=== PATIENT | male | born 1950 | race African-American/Black ===

== ENCOUNTER 2017-02-22 15:11 | Inpatient (IN) | payer MEDICAID ==
[~2017-02-22] VITALS: Ht 180.3 cm; Wt 80.4 kg
[2017-02-22] MEDS: SODIUM CHLORIDE 0.9% 1,000 ML IV SCH (01:30)
[~2017-02-22 15:11] MED LIST: CHOL100011 PO; CODE15TA PO; LEVO125T PO; LISI-167 PO
[2017-02-22] MEDS ORDERED: SODIUM CHLORIDE 0.9% 1,000 ML IV ONE (15:28)
[2017-02-22] MEDS ORDERED: ONDANSETRON 2MG/ML, 2ML IVPush ONE (15:30)
[2017-02-22] MEDS ORDERED: FAMOTIDINE 20 MG/2 ML IVP ONE (15:30)
[2017-02-22] MEDS ORDERED: SODIUM CHLORIDE 0.9% 1,000ML IVBOLUS ONE (15:30)
[2017-02-22] MEDS ORDERED: ONDANSETRON 2MG/ML, 2ML ONE (15:53)
[2017-02-22] MEDS ORDERED: FAMOTIDINE 20 MG/2 ML ONE (15:53)
[2017-02-22 16:14] LABS: ASPARTATE AMINO TRANSFERASE 21 U/L (15-37); BLOOD UREA NITROGEN 26 mg/dL (7-18)
[2017-02-22] MEDS ORDERED: MAALOX/HYOSCYAMINE/LIDOCAINE 45 ML BOTTLE PO ONE (18:00)
[2017-02-22] MEDS ORDERED: MAALOX/HYOSCYAMINE/LIDOCAINE 45 ML BOTTLE ONE (18:09)
[2017-02-22 18:21] LABS: IS PT STATUS REG ER OR PRE ER? YES
[2017-02-22] MEDS ORDERED: ASPIRIN 325 MG TABLET PO ONE (18:42)
[2017-02-22] MEDS ORDERED: ASPIRIN 325 MG TABLET ONE (19:56)
[2017-02-22] MEDS ORDERED: hydrALAzine 20 MG/ML, 1ML IVPush PRN (21:00)
[2017-02-22] MEDS ORDERED: HEPARIN 5,000 UNITS/ML, 1ML IV PRN (21:00)
[2017-02-22] MEDS ORDERED: DOCUSATE 100 MG CAPSULE PO PRN (21:00)
[2017-02-22] MEDS ORDERED: HEPARIN 25,000 UNITS/500ML PMX 500 ML IV PRN (21:00)
[2017-02-22] MEDS ORDERED: BISACODYL 10 MG SUPP PR PRN (21:00)
[2017-02-22] MEDS ORDERED: ACETAMINOPHEN 325 MG TABLET PO PRN (21:00)
[2017-02-22] MEDS ORDERED: HEPARIN 5,000 UNITS/ML, 1ML IV ONE (21:00)
[2017-02-22] MEDS ORDERED: TRAZODONE 50MG TABLET PO PRN (21:00)
[2017-02-22] MEDS ORDERED: POLYETHYLENE GLYCOL 17 GM PACKET PO PRN (21:00)
[2017-02-22] MEDS: ATORVASTATIN 80 MG TABLET PO SCH (21:47)
[2017-02-22 21:50] VITALS: BP 158/97
[2017-02-22] MEDS: ONDANSETRON 2MG/ML, 2ML IVPush PRN (22:07)
[2017-02-22 23:06] LABS: IS PT STATUS REG ER OR PRE ER? NO
[2017-02-23 02:15] VITALS: BP 152/96
[2017-02-23] MEDS: PROCHLORPERAZINE 5 MG/ML, 2ML IV PRN ×3 (04:45→21:26)
[2017-02-23 05:42] LABS: ASPARTATE AMINO TRANSFERASE 20 U/L (15-37); BLOOD UREA NITROGEN 19 mg/dL (7-18)
[2017-02-23 05:46] LABS: IS PT STATUS REG ER OR PRE ER? NO
[2017-02-23 07:40] VITALS: BP 156/93
[2017-02-23] MEDS: THIAMINE 100MG TABLET PO SCH (08:24)
[2017-02-23] MEDS: FOLIC ACID 1 MG TABLET PO SCH (08:24)
[2017-02-23] MEDS: LISINOPRIL 10 MG TABLET PO SCH (08:24)
[2017-02-23] MEDS: LEVOTHYROXINE 125 MCG TABLET PO SCH (08:24)
[2017-02-23] MEDS: ONDANSETRON 2MG/ML, 2ML IVPush PRN ×2 (08:24→16:57)
[2017-02-23] MEDS: ASPIRIN 81 MG TABLET CHEW PO SCH (08:25)
[2017-02-23] MEDS ORDERED: SODIUM CHLORIDE 0.9% 1,000 ML IV SCH (10:08)
[2017-02-23] MEDS: CARVEDILOL 6.25 MG TABLET PO SCH ×2 (11:26→17:02)
[2017-02-23] MEDS: SODIUM CHLORIDE 0.9% 1,000 ML IV SCH ×2 (11:51→21:27)
[2017-02-23 13:49] VITALS: BP 146/91
[2017-02-23] MEDS ORDERED: MIDAZOLAM 1 MG/ML, 5ML ONE (14:42)
[2017-02-23] MEDS ORDERED: HEPARIN 1,000 UNITS/ML, 10ML ONE (14:43)
[2017-02-23] MEDS ORDERED: BIVALIRUDIN 250 MG ONE (14:43)
[2017-02-23] MEDS ORDERED: LIDOCAINE 2%, 20ML ONE (14:43)
[2017-02-23] MEDS ORDERED: FENTANYL PF 100 MCG/2ML ONE (14:43)
[2017-02-23] MEDS ORDERED: VERAPAMIL 2.5 MG/ML, 2ML ONE (14:43)
[2017-02-23] MEDS ORDERED: TICAGRELOR 90 MG TABLET ONE (14:43)
[2017-02-23] MEDS ORDERED: CLOPIDOGREL 300 MG TABLET PO ONE (16:00)
[2017-02-23] MEDS ORDERED: LORazepam 2 MG/ML, 1ML IVPush ONE (18:00)
[2017-02-23 20:31] VITALS: BP 156/83
[2017-02-23] MEDS: ATORVASTATIN 80 MG TABLET PO SCH (21:27)
[2017-02-24 02:25] VITALS: BP 126/63
[2017-02-24] MEDS: SODIUM CHLORIDE 0.9% 1,000 ML IV SCH (05:04)
[2017-02-24 05:20] LABS: BLOOD UREA NITROGEN 13 mg/dL (7-18)
[2017-02-24] MEDS: CARVEDILOL 6.25 MG TABLET PO SCH (06:18)
[2017-02-24 08:09] VITALS: BP 129/82
[2017-02-24] MEDS: THIAMINE 100MG TABLET PO SCH (08:10)
[2017-02-24] MEDS: ASPIRIN 81 MG TABLET CHEW PO SCH (08:10)
[2017-02-24] MEDS: FOLIC ACID 1 MG TABLET PO SCH (08:10)
[2017-02-24] MEDS: LISINOPRIL 10 MG TABLET PO SCH (08:10)
[2017-02-24] MEDS: LEVOTHYROXINE 125 MCG TABLET PO SCH (08:10)
[2017-02-24] MEDS ORDERED: CLOPIDOGREL 75 MG TABLET PO SCH (09:00)
[2017-02-24] MEDS ORDERED: ATOR80TA75 PO (09:36)
[2017-02-24] MEDS ORDERED: CLOP75TA PO (09:36)
[2017-02-24] MEDS ORDERED: CARV6.2512 PO (09:36)
[2017-02-24] MEDS ORDERED: ASPI-515 PO (09:36)
[2017-02-24] MEDS ORDERED: FOLI-17 PO (09:36)
[2017-02-24] MEDS ORDERED: THIA100T6 PO (09:36)
== END 2017-02-24 10:55 | disposition home or self-care (01) | DRG 282 ==
LOC: ED 16:27 → EDIP 18:25 → 5SO 20:20 → DCLOUNGE 02-24 10:35
PROVIDERS: ADMIT Internal Medicine; ATTEND Internal Medicine
PROC: 4A023N7 Measurement of Cardiac Sampling and Pressure, Left Heart, Percutaneous Approach (ICD-10-PCS; principal; 2017-02-22)
PROC: B2111ZZ Fluoroscopy of Multiple Coronary Arteries using Low Osmolar Contrast (ICD-10-PCS; 2017-02-22)
PROC: B2151ZZ Fluoroscopy of Left Heart using Low Osmolar Contrast (ICD-10-PCS; 2017-02-22)
DX: I21.4 Non-ST elevation (NSTEMI) myocardial infarction (principal); E03.9 Hypothyroidism, unspecified; I10 Essential (primary) hypertension; Z83.3 Family history of diabetes mellitus; F12.90 Cannabis use, unspecified, uncomplicated; Z87.19 Personal history of other diseases of the digestive system; E78.5 Hyperlipidemia, unspecified; Z87.11 Personal history of peptic ulcer disease; I25.10 Atherosclerotic heart disease of native coronary artery without angina pectoris
CPT/HCPCS: 36415; 71010; 80048; 80053; 81001; 83690; 83735; 84439; 84443; 84484; 85025; 85520; 85610; 93005; 93306; 93458; 96374; 96375; 99156; 99157; C1760; C1894; J0583; J1644; J2250; J2405; J3010; J3490; J0360; J0780; J2060; J7030; Q9967; S0028

== ENCOUNTER 2017-07-17 13:56 | Inpatient (IN) | payer MEDICAID ==
[~2017-07-17] VITALS: Ht 180.3 cm; Wt 85.5 kg
[~2017-07-17 13:56] MED LIST changes: +ASPI-515 PO; +ATOR-2 PO; +CARV6.2512 PO; +CLOP75TA PO; +FOLI-17 PO; +THIA100T6 PO
[2017-07-17] MEDS ORDERED: ONDANSETRON 2MG/ML, 2ML IVPush ONE (15:00)
[2017-07-17] MEDS ORDERED: SODIUM CHLORIDE 0.9% 1,000ML IVBOLUS ONE (15:00)
[2017-07-17] MEDS ORDERED: SODIUM CHLORIDE FLUSH 10ML SYR IVF ONE (15:00)
[2017-07-17] MEDS ORDERED: morphine SULFATE 10 MG/ML, 1ML ONE (15:11)
[2017-07-17] MEDS ORDERED: ONDANSETRON 2MG/ML, 2ML ONE (15:12)
[2017-07-17] MEDS: MORPHINE SULFATE 4 MG/ML, 1ML IVPush PRN ×2 (15:13→19:28)
[2017-07-17 15:23] LABS: ASPARTATE AMINO TRANSFERASE 18 U/L (15-37); BLOOD UREA NITROGEN 23 mg/dL (7-18)
[2017-07-17 15:41] LABS: HEMATOCRIT 47.3 % (39.2-51.8); HEMOGLOBIN 15.8 g/dL (13.7-18.0); WHITE BLOOD COUNT 13.1 x10^3/uL (3.4-10)
[2017-07-17] MEDS ORDERED: OMNIPAQUE 350 MG/ML, 100ML BOTTLE ONE (17:14)
[2017-07-17] MEDS ORDERED: ONDANSETRON 2MG/ML, 2ML IVPush PRN (18:00)
[2017-07-17] MEDS ORDERED: ACETAMINOPHEN 325 MG TABLET PO PRN (18:00)
[2017-07-17] MEDS ORDERED: POLYETHYLENE GLYCOL 17 GM PACKET PO PRN (18:00)
[2017-07-17] MEDS ORDERED: BISACODYL 10 MG SUPP PR PRN (18:00)
[2017-07-17 20:00] VITALS: BP 174/90
[2017-07-17] MEDS: SODIUM CHLORIDE 0.9% 1,000 ML IV SCH (20:41)
[2017-07-17] MEDS: CARVEDILOL 6.25 MG TABLET PO SCH (20:42)
[2017-07-17] MEDS: ATORVASTATIN 80 MG TABLET PO SCH (20:42)
[2017-07-17] MEDS: HEPARIN 5,000 UNITS/ML, 1ML SQ SCH (20:43)
[2017-07-17] MEDS: morphine SULFATE 10 MG/ML, 1ML IVPush PRN (21:09)
[2017-07-17 21:30] LABS: IS PT STATUS REG ER OR PRE ER? NO
[2017-07-18 00:31] VITALS: BP 167/95
[2017-07-18] MEDS: ONDANSETRON 2MG/ML, 2ML IVPush PRN ×2 (01:12→08:55)
[2017-07-18] MEDS ORDERED: ALUMINUM/MAG/SIMETHICONE 30 ML UDC PO PRN (01:30)
[2017-07-18 03:14] LABS: ASPARTATE AMINO TRANSFERASE 19 U/L (15-37); BLOOD UREA NITROGEN 19 mg/dL (7-18)
[2017-07-18 03:20] LABS: IS PT STATUS REG ER OR PRE ER? NO
[2017-07-18] MEDS: SODIUM CHLORIDE 0.9% 1,000 ML IV SCH ×3 (05:13→20:30)
[2017-07-18] MEDS: LEVOTHYROXINE 125 MCG TABLET PO SCH (05:14)
[2017-07-18] MEDS: CARVEDILOL 6.25 MG TABLET PO SCH ×2 (05:14→18:02)
[2017-07-18] MEDS: HEPARIN 5,000 UNITS/ML, 1ML SQ SCH ×3 (05:14→20:29)
[2017-07-18] MEDS: morphine SULFATE 10 MG/ML, 1ML IVPush PRN ×2 (05:14→08:55)
[2017-07-18 05:51] LABS: HEMOGLOBIN 13.7 g/dL (13.7-18.0); WHITE BLOOD COUNT 13.1 x10^3/uL (3.4-10)
[2017-07-18 06:27] VITALS: BP 148/78
[2017-07-18] MEDS: SENNA/DOCUSATE TABLET PO SCH (08:54)
[2017-07-18] MEDS: CLOPIDOGREL 75 MG TABLET PO SCH (08:54)
[2017-07-18] MEDS: ASPIRIN 81 MG TABLET EC PO SCH (08:54)
[2017-07-18] MEDS: FOLIC ACID 1 MG TABLET PO SCH (08:54)
[2017-07-18] MEDS: LISINOPRIL 10 MG TABLET PO SCH (08:54)
[2017-07-18] MEDS: THIAMINE 100MG TABLET PO SCH (08:58)
[2017-07-18 14:35] VITALS: BP 115/74
[2017-07-18 14:39] LABS: IS PT STATUS REG ER OR PRE ER? NO
[2017-07-18 18:51] VITALS: BP 108/60
[2017-07-18] MEDS: ATORVASTATIN 80 MG TABLET PO SCH (20:29)
[2017-07-18] MEDS ORDERED: ACETAMINOPHEN 325 MG TABLET PO PRN (21:00)
[2017-07-18] MEDS ORDERED: POLYETHYLENE GLYCOL 17 GM PACKET PO PRN (21:00)
[2017-07-19 01:18] VITALS: BP 112/71
[2017-07-19] MEDS: LEVOTHYROXINE 125 MCG TABLET PO SCH (04:48)
[2017-07-19] MEDS: SODIUM CHLORIDE 0.9% 1,000 ML IV SCH (04:54)
[2017-07-19] MEDS: HEPARIN 5,000 UNITS/ML, 1ML SQ SCH ×2 (04:55→13:00)
[2017-07-19 05:04] VITALS: BP 128/84
[2017-07-19] MEDS: CARVEDILOL 6.25 MG TABLET PO SCH (05:04)
[2017-07-19 05:43] LABS: HEMATOCRIT 37.4 % (39.2-51.8); HEMOGLOBIN 12.3 g/dL (13.7-18.0); WHITE BLOOD COUNT 7.1 x10^3/uL (3.4-10)
[2017-07-19 06:06] LABS: BLOOD UREA NITROGEN 12 mg/dL (7-18)
[2017-07-19 06:07] LABS: IS PT STATUS REG ER OR PRE ER? NO
[2017-07-19 07:25] VITALS: BP 154/90
[2017-07-19] MEDS ORDERED: REGADENOSON 0.4 MG/5 ML SYRINGE ONE (07:56)
[2017-07-19] MEDS: SENNA/DOCUSATE TABLET PO SCH (09:00)
[2017-07-19] MEDS: CLOPIDOGREL 75 MG TABLET PO SCH (11:02)
[2017-07-19] MEDS: LISINOPRIL 10 MG TABLET PO SCH (11:03)
[2017-07-19] MEDS: FOLIC ACID 1 MG TABLET PO SCH (11:03)
[2017-07-19] MEDS: THIAMINE 100MG TABLET PO SCH (11:03)
[2017-07-19] MEDS: ASPIRIN 81 MG TABLET EC PO SCH (11:04)
[2017-07-19 15:23] VITALS: BP 104/70
== END 2017-07-19 16:14 | disposition home or self-care (01) | DRG 392 ==
LOC: ED 17:37 → EDIP 17:56 → 4WST 19:00 → DCLOUNGE 07-19 16:00
PROVIDERS: ADMIT Hospitalist; ATTEND Hospitalist
DX: R10.9 Unspecified abdominal pain (principal); N17.9 Acute kidney failure, unspecified; E87.2 Acidosis; R65.10 Systemic inflammatory response syndrome (SIRS) of non-infectious origin without acute organ dysfunction; E86.9 Volume depletion, unspecified; D72.829 Elevated white blood cell count, unspecified; I11.9 Hypertensive heart disease without heart failure; E03.9 Hypothyroidism, unspecified; F12.90 Cannabis use, unspecified, uncomplicated; I25.2 Old myocardial infarction; Z83.3 Family history of diabetes mellitus; Z87.11 Personal history of peptic ulcer disease; Z87.19 Personal history of other diseases of the digestive system
CPT/HCPCS: 36415; 74022; 74177; 78452; 80048; 80053; 81001; 83605; 83690; 84484; 85025; 87046; 87324; 87899; 89055; 93005; 93017; J1644; J2405; J2785; Q9967; A9502; C9898; J2270; J7030

== ENCOUNTER 2017-10-11 13:01 | Emergency (ER) | payer MEDICAID, MEDICARE ==
[~2017-10-11] VITALS: Ht 180.3 cm; Wt 79.3 kg
[2017-10-11 15:58] VITALS: BP 114/84
== END 2017-10-11 16:02 | disposition home or self-care (01) ==
LOC: ED 15:58
DX: K04.7 Periapical abscess without sinus (principal); M54.2 Cervicalgia; E03.9 Hypothyroidism, unspecified; I25.2 Old myocardial infarction; I11.9 Hypertensive heart disease without heart failure
CPT/HCPCS: 72125; 99284

== ENCOUNTER → 2017-10-15 | Outpatient (CLI) | payer MEDICAID, MEDICARE ==
[2017-10-15 12:50] LABS: ALBUMIN 4.1 g/dL (3.4-5.0); BILIRUBIN, DIRECT 0.2 mg/dL (0.1-0.2); BILIRUBIN,INDIRECT 0.6 mg/dL (0.0-2.0); BILIRUBIN,TOTAL 0.8 mg/dL (0.2-1.0); CHOL/HDL RATIO 2.1; LDL/HDL RATIO 0.9 (0.5-3.0); TOTAL PROTEIN 8.4 g/dL (6.4-8.2)
== END | disposition home or self-care (01) ==
LOC: LAB 09:26
PROVIDERS: ATTEND Internal Medicine Cardiovascular Disease
DX: E78.2 Mixed hyperlipidemia (principal); I25.10 Atherosclerotic heart disease of native coronary artery without angina pectoris
CPT/HCPCS: 36415; 80061; 80076

== ENCOUNTER → 2018-07-25 | Outpatient (CLI) | payer MEDICARE, MEDICAID ==
[~2018-07-25] MED LIST changes: -THIA100T6 PO; +THIA100T67 PO
== END | disposition home or self-care (01) ==
LOC: CFH 08:18
PROVIDERS: ATTEND Internal Medicine Cardiovascular Disease
DX: I25.10 Atherosclerotic heart disease of native coronary artery without angina pectoris (principal)
CPT/HCPCS: 78452; 93017; A9502

== ENCOUNTER → 2018-10-11 | Outpatient (CLI) | payer MEDICARE, MEDICAID ==
[2018-10-11 12:49] LABS: ALBUMIN 4.1 g/dL (3.4-5.0); ANION GAP 8 mmol/L (5-15); CALCIUM 9.4 mg/dL (8.5-10.1); CHLORIDE 107 mmol/L (98-107)
[2018-10-11 12:52] LABS: ALANINE AMINOTRANSFERASE 15 U/L (12-78); ALKALINE PHOSPHATASE 103 U/L (45-117); BILIRUBIN,TOTAL 0.8 mg/dL (0.2-1.0); CHOL/HDL RATIO 2.4; CHOLESTEROL, TOTAL 179 mg/dL (140-239); CREATININE 1.14 mg/dL (0.7-1.3); HDL CHOL % 42 % (26-37); HDL CHOLESTEROL (DIRECT) 76 mg/dL (40-60); LDL CHOLESTEROL,CALCULATED 88 mg/dL (54-169); LDL/HDL RATIO 1.2 (0.5-3.0); TOTAL PROTEIN 8.3 g/dL (6.4-8.2); TRIGLYCERIDES 75 mg/dL (50-200); VLDL CHOLESTEROL 15 mg/dL (0-25)
== END | disposition home or self-care (01) ==
LOC: CFH 10:09
PROVIDERS: ATTEND Internal Medicine Cardiovascular Disease
DX: E78.2 Mixed hyperlipidemia (principal)
CPT/HCPCS: 36415; 80053; 80061